=== PATIENT | female | born 1970 | race American Indian/Alaskan Native ===

== ENCOUNTER 2021-02-20 10:43 | Emergency (ER) | payer BC, MEDICAID ==
[~2021-02-20] VITALS: Ht 165.1 cm; Wt 97.7 kg
[~2021-02-20 10:43] MED LIST: DOXE100C10 PO; LURA40TA3 PO; METF-900 PO; NO HOME MEDS
[2021-02-20] MEDS ORDERED: acetaminophen 325mg tablet PO ONE (12:00)
[2021-02-20 13:19] LABS: BASOPHILS # (AUTO) 0.1 X10'3 (0-0.2); BASOPHILS % (AUTO) 0.4 % (0-1); EOSINOPHILS # (AUTO) 0.1 X10'3 (0-0.9); EOSINOPHILS % (AUTO) 0.7 % (0-6); HEMATOCRIT 37.4 % (35.0-45.0); HEMOGLOBIN 12.2 g/dl (12.0-16.0); LYMPHOCYTES # (AUTO) 3.5 X10'3 (1.1-4.8); LYMPHOCYTES % (AUTO) 21.9 % (21-51); MEAN CORPUSCULAR HEMOGLOBIN 31.5 PG (27.0-31.0); MEAN CORPUSCULAR HGB CONC 32.6 g/dL (33.0-36.5); MEAN CORPUSCULAR VOLUME 96.7 FL (78-98); MEAN PLATELET VOLUME 8.7 FL (7.4-10.4); MONOCYTES # (AUTO) 0.8 X10'3 (0-0.9); MONOCYTES % (AUTO) 5.3 % (2-12); NEUTROPHILS # (AUTO) 11.4 X10'3 (1.8-7.7); NEUTROPHILS % (AUTO) 71.7 % (42-75); PLATELET COUNT 391 X10'3 (140-440); RED BLOOD COUNT 3.87 X10'6 (4.20-5.60); RED CELL DISTRIBUTION WIDTH 13.6 % (11.5-14.5); WHITE BLOOD COUNT 15.9 X10'3 (4.5-11.0)
[2021-02-20 13:36] LABS: D-DIMER 2.27 MG/L FEU (0-0.50)
[2021-02-20 13:41] LABS: ALANINE AMINOTRANSFERASE 24 U/L (12-78); ALBUMIN 3.2 G/DL (3.4-5.0); ALBUMIN/GLOBULIN RATIO 0.8 (1.1-1.5); ALKALINE PHOSPHATASE 88 IU/L (46-116); ANION GAP 11 (8-16); ASPARTATE AMINO TRANSFERASE 12 U/L (10-37); BILIRUBIN,TOTAL 0.5 MG/DL (0.1-1.0); BLOOD UREA NITROGEN 10 MG/DL (7-18); BUN/CREATININE RATIO 14.1 (6.6-38.0); C-REACTIVE PROTEIN 4.29 MG/DL (0.0-0.5); CALCIUM 8.7 MG/DL (8.5-10.1); CHLORIDE 104 MMOL/L (99-107); CREATININE 0.71 MG/DL (0.40-0.90); GLUCOSE 118 MG/DL (70-104); POTASSIUM 4.4 MMOL/L (3.5-5.1); SODIUM 142 MMOL/L (135-145); TOTAL CARBON DIOXIDE 27.4 MMOL/L (24-32); eGFR 87 ML/MIN
[2021-02-20] MEDS ORDERED: iohexol 350MG/ML 100ml bottle IV ONE (14:57)
[2021-02-20 15:15] VITALS: BP 136/80
[2021-02-20] MEDS ORDERED: AZIT500T9 PO (16:46)
[2021-02-21] MEDS ORDERED: ROSU40TA22 PO (19:01)
[2021-02-21] MEDS ORDERED: LISI20TA28 PO (19:01)
== END 2021-02-20 17:07 | disposition home or self-care (01) ==
LOC: ER 10:44
DX: J18.9 Pneumonia, unspecified organism (principal); Z20.822 Contact with and (suspected) exposure to COVID-19; I50.9 Heart failure, unspecified; E11.9 Type 2 diabetes mellitus without complications; Z88.1 Allergy status to other antibiotic agents; Z79.2 Long term (current) use of antibiotics; Z79.899 Other long term (current) drug therapy
CPT/HCPCS: 36415; 71045; 71275; 80053; 84145; 85025; 85379; 86140; 87502; 87503; 87635; 99285; C9803; Q9967

== ENCOUNTER 2021-02-21 15:22 | Inpatient (IN) | payer BC, MEDICAID ==
[~2021-02-21] VITALS: Ht 170.2 cm; Wt 97.7 kg
[~2021-02-21 15:22] MED LIST changes: +AZIT500T9 PO
[2021-02-21] MEDS ORDERED: normal saline 1000ML IV soln IV ONE (16:05)
[2021-02-21] MEDS ORDERED: acetaminophen 325mg tablet PO ONE (16:10)
[2021-02-21 17:07] LABS: BASOPHILS # (AUTO) 0.1 X10'3 (0-0.2); BASOPHILS % (AUTO) 0.3 % (0-1); EOSINOPHILS % (AUTO) 0 % (0-6); HEMATOCRIT 38.9 % (35.0-45.0); HEMOGLOBIN 12.9 g/dl (12.0-16.0); LYMPHOCYTES % (AUTO) 3.9 % (21-51); MEAN CORPUSCULAR HEMOGLOBIN 31.5 PG (27.0-31.0); MEAN CORPUSCULAR HGB CONC 33.2 g/dL (33.0-36.5); MEAN PLATELET VOLUME 9.1 FL (7.4-10.4); MONOCYTES # (AUTO) 0.7 X10'3 (0-0.9); MONOCYTES % (AUTO) 2.7 % (2-12); NEUTROPHILS # (AUTO) 23.1 X10'3 (1.8-7.7); NEUTROPHILS % (AUTO) 93.1 % (42-75); PLATELET COUNT 393 X10'3 (140-440); RED CELL DISTRIBUTION WIDTH 13.4 % (11.5-14.5); WHITE BLOOD COUNT 24.8 X10'3 (4.5-11.0)
[2021-02-21 17:39] LABS: ALANINE AMINOTRANSFERASE 25 U/L (12-78); ALBUMIN 3.3 G/DL (3.4-5.0); ALBUMIN/GLOBULIN RATIO 0.8 (1.1-1.5); ALKALINE PHOSPHATASE 97 IU/L (46-116); ANION GAP 14 (8-16); ASPARTATE AMINO TRANSFERASE 13 U/L (10-37); BILIRUBIN,TOTAL 1.1 MG/DL (0.1-1.0); BLOOD UREA NITROGEN 10 MG/DL (7-18); BUN/CREATININE RATIO 11.4 (6.6-38.0); CALCIUM 8.9 MG/DL (8.5-10.1); CHLORIDE 98 MMOL/L (99-107); CREATININE 0.88 MG/DL (0.40-0.90); GLUCOSE 157 MG/DL (70-104); MAGNESIUM 1.7 MG/DL (1.5-2.4); POTASSIUM 3.8 MMOL/L (3.5-5.1); SODIUM 135 MMOL/L (135-145); TOTAL CARBON DIOXIDE 22.6 MMOL/L (24-32); TOTAL PROTEIN 7.5 G/DL (6.4-8.2); eGFR 68 ML/MIN
[2021-02-21 17:50] LABS: PLATELET ESTIMATE NORMAL; TOTAL CELLS COUNTED 100
[2021-02-21] MEDS ORDERED: CefTRIAXone/D5W-Rocephin 1gm 50 ML IV ONE (18:15)
[2021-02-21] MEDS ORDERED: LISI20TA28 PO (19:01)
[2021-02-21] MEDS ORDERED: ROSU40TA22 PO (19:01)
[2021-02-21] MEDS ORDERED: mag hydrox/Alum hydrox/simeth 30ml oral suspension PO PRN (20:10)
[2021-02-21] MEDS ORDERED: ondansetron/PF 4mg/2ml inj IV PRN (20:10)
[2021-02-21] MEDS ORDERED: PERFLUTREN PROTEIN-A MICROSPHR (Optison) 0.22 MG/ML 3ML VIAL IV PRN (20:10)
[2021-02-21] MEDS ORDERED: potassium Cl 20 mEq SR tablet PO PRN ×2 (20:10)
[2021-02-21] MEDS ORDERED: potassium Cl 40MEQ/1/2NS 520ml 520 ML IV PRN ×2 (20:10)
[2021-02-21] MEDS ORDERED: acetaminophen 325mg tablet PO PRN (20:10)
[2021-02-21] MEDS ORDERED: magnesium hydroxide 30ml (MOM) UD suspension PO PRN (20:10)
[2021-02-21] MEDS ORDERED: dextrose 50%-water 50ml dispensing syringe IV PRN ×2 (20:15)
[2021-02-21] MEDS ORDERED: glucagon, human recombinant 1mg kit SUBCUT PRN (20:15)
[2021-02-21] MEDS ORDERED: dextrose ORAL solution 15 GM/59 ML bottle PO PRN ×2 (20:15)
[2021-02-21] MEDS ORDERED: MESSAGE TO PHARMACY PO ONE (20:15)
[2021-02-21 20:30] LABS: HEMOGLOBIN A1C 6.7 % (4.5-6.2)
[2021-02-21] MEDS: morphine 2 MG/ML inj. syringe IV PRN (22:39)
[2021-02-21] MEDS: lurasidone 20mg tablet PO SCH (22:39)
[2021-02-21] MEDS: normal saline 1000ml 1,000 ML IV SCH (22:40)
[2021-02-21] MEDS: doxepin 25mg capsule PO SCH (22:40)
[2021-02-21] MEDS: insulin glargine (Lantus) pen - multi-dose SQ SCH (22:40)
[2021-02-22] MEDS: morphine 2 MG/ML inj. syringe IV PRN (03:00)
[2021-02-22 06:09] LABS: MEAN CORPUSCULAR HEMOGLOBIN 31.9 PG (27.0-31.0)
[2021-02-22 06:10] LABS: BASOPHILS % (AUTO) 0.1 % (0-1); EOSINOPHILS % (AUTO) 0.1 % (0-6); HEMATOCRIT 32.7 % (35.0-45.0); HEMOGLOBIN 10.8 g/dl (12.0-16.0); LYMPHOCYTES # (AUTO) 2.4 X10'3 (1.1-4.8); LYMPHOCYTES % (AUTO) 10.3 % (21-51); MEAN CORPUSCULAR VOLUME 96.5 FL (78-98); MEAN PLATELET VOLUME 9.2 FL (7.4-10.4); MONOCYTES # (AUTO) 1.1 X10'3 (0-0.9); MONOCYTES % (AUTO) 4.6 % (2-12); NEUTROPHILS # (AUTO) 20.3 X10'3 (1.8-7.7); NEUTROPHILS % (AUTO) 84.9 % (42-75); PLATELET COUNT 316 X10'3 (140-440); RED BLOOD COUNT 3.39 X10'6 (4.20-5.60); RED CELL DISTRIBUTION WIDTH 13.8 % (11.5-14.5); WHITE BLOOD COUNT 23.9 X10'3 (4.5-11.0)
[2021-02-22] MEDS: normal saline 1000ml 1,000 ML IV SCH ×2 (06:10→16:10)
[2021-02-22 06:21] LABS: ALANINE AMINOTRANSFERASE 15 U/L (12-78); ALBUMIN 2.5 G/DL (3.4-5.0); ALBUMIN/GLOBULIN RATIO 0.7 (1.1-1.5); ALKALINE PHOSPHATASE 75 IU/L (46-116); ANION GAP 9 (8-16); ASPARTATE AMINO TRANSFERASE 11 U/L (10-37); BILIRUBIN,TOTAL 0.8 MG/DL (0.1-1.0); BLOOD UREA NITROGEN 13 MG/DL (7-18); BUN/CREATININE RATIO 12.1 (6.6-38.0); CALCIUM 7.7 MG/DL (8.5-10.1); CHLORIDE 101 MMOL/L (99-107); CREATININE 1.07 MG/DL (0.40-0.90); GLUCOSE 135 MG/DL (70-104); SODIUM 135 MMOL/L (135-145); TOTAL CARBON DIOXIDE 25.5 MMOL/L (24-32); TOTAL PROTEIN 6.1 G/DL (6.4-8.2); eGFR 55 ML/MIN
--- NOTE | 2021-02-22 07:00 | NUR ---
Patient in room [facility]. I have received report from RADHA PADILLA and had the opportunity to ask questions and assume patient care.
[2021-02-22 07:38] VITALS: BP 98/56
[2021-02-22] MEDS ORDERED: CefTRIAXone/D5W-Rocephin 1gm 50 ML IV SCH (08:00)
[2021-02-22] MEDS: K and/or MAG REPLACEMENT MC SCH ×2 (08:00→20:00)
[2021-02-22] MEDS: docusate sod 100mg capsule PO SCH ×2 (09:14→21:08)
[2021-02-22] MEDS: azithromycin 250mg tablet PO SCH (09:14)
[2021-02-22] MEDS: methylPREDNISolone sod succ/PF 40mg inj. IV SCH ×2 (09:15→21:08)
[2021-02-22] MEDS: atorvastatin 20mg tablet PO SCH (09:15)
[2021-02-22] MEDS: heparin, porcine 5000 units/ml vial SQ SCH ×2 (09:16→21:08)
--- NOTE | 2021-02-22 09:48 | NUR ---
Based on pt's symptoms Dr Mathews ordered Covid PCR send out. Lab notified. [facility] tech stated pt needs a 'wet' Covid test and it will be sent out to the [facility] Dept. Tech stated the Covid AME order will be modified by the lab to reflect PCR testing, as no options for PCR testing are available in [facility]. "Wet" swab was delivered to VALERIE Vega.
[2021-02-22] MEDS: cefepime 2g/NS 100ml ADVANTAGE 100 ML IV SCH ×3 (10:55→23:16)
[2021-02-22] MEDS: HYDROcodone/acetaminophen 5mg/325mg tablet PO PRN (12:37)
--- NOTE | 2021-02-22 12:46 | NUR ---
Microbiology dept called to report Bcx on R & L arms from 02/21/21 appears to be growing "Gm negative rods", and NOT "gm positive cocci" as previously reported. VALERIE Vega notified.
--- NOTE | 2021-02-22 12:51 | NUR ---
PAGER ID: [phone] MESSAGE: LOIS SURG [id number] RE: [id number] [facility] MADE MISTAKE ON BLOOD CULTURE ACTUALLY G- RODS NOT COCCI. THANKS LOIS.
--- NOTE | 2021-02-22 17:37 | NUR ---
PAGER ID: [phone] MESSAGE: Gary surg [id number] re: [id number] theodore Romero would you be okay for me to add in MDI albuterol for patient until the PCR test is back so respiratory can treat? thank Gary.
--- NOTE | 2021-02-22 18:45 | NUR ---
Patient in room [facility]. I have received report from Gary PADILLA and had the opportunity to ask questions and assume patient care.
--- NOTE | 2021-02-22 18:57 | NUR ---
Problems reprioritized. Patient report given, questions answered & plan of care reviewed with BALAJI PADILLA.
[2021-02-22 19:00] VITALS: BP 166/72
[2021-02-22] MEDS: insulin glargine (Lantus) pen - multi-dose SQ SCH (21:00)
[2021-02-22] MEDS: lactobacillus rhamnosus 10,000 MMU CELLS/CAPSULE PO SCH (21:08)
[2021-02-22] MEDS: lurasidone 20mg tablet PO SCH (21:09)
[2021-02-22] MEDS: doxepin 25mg capsule PO SCH (21:09)
[2021-02-22] MEDS: ALBUTEROL INHALER 1 PUFF/90 MCG INHALER IH PRN (21:10)
[2021-02-23] VITALS: BP 136/73
[2021-02-23] MEDS: normal saline 1000ml 1,000 ML IV SCH ×3 (02:10→22:10)
[2021-02-23] MEDS: guaiFENesin/codeine phos 10ml UD oral syrup PO PRN ×4 (05:26→21:35)
[2021-02-23] MEDS: HYDROcodone/acetaminophen 5mg/325mg tablet PO PRN ×2 (05:27→22:43)
[2021-02-23 06:05] LABS: BASOPHILS % (AUTO) 0.1 % (0-1); EOSINOPHILS % (AUTO) 0 % (0-6); HEMATOCRIT 32.1 % (35.0-45.0); HEMOGLOBIN 10.5 g/dl (12.0-16.0); LYMPHOCYTES # (AUTO) 1.3 X10'3 (1.1-4.8); LYMPHOCYTES % (AUTO) 5.5 % (21-51); MEAN CORPUSCULAR HEMOGLOBIN 31.3 PG (27.0-31.0); MEAN CORPUSCULAR HGB CONC 32.7 g/dL (33.0-36.5); MEAN CORPUSCULAR VOLUME 95.8 FL (78-98); MEAN PLATELET VOLUME 9.1 FL (7.4-10.4); MONOCYTES # (AUTO) 1.1 X10'3 (0-0.9); MONOCYTES % (AUTO) 4.5 % (2-12); NEUTROPHILS # (AUTO) 21.3 X10'3 (1.8-7.7); NEUTROPHILS % (AUTO) 89.9 % (42-75); PLATELET COUNT 324 X10'3 (140-440); RED BLOOD COUNT 3.35 X10'6 (4.20-5.60); RED CELL DISTRIBUTION WIDTH 13.7 % (11.5-14.5); WHITE BLOOD COUNT 23.8 X10'3 (4.5-11.0)
[2021-02-23 06:22] LABS: ALANINE AMINOTRANSFERASE 25 U/L (12-78); ALBUMIN 2.4 G/DL (3.4-5.0); ALBUMIN/GLOBULIN RATIO 0.5 (1.1-1.5); ALKALINE PHOSPHATASE 105 IU/L (46-116); ANION GAP 8 (8-16); ASPARTATE AMINO TRANSFERASE 13 U/L (10-37); BILIRUBIN,TOTAL 0.3 MG/DL (0.1-1.0); BLOOD UREA NITROGEN 15 MG/DL (7-18); BUN/CREATININE RATIO 20.5 (6.6-38.0); CALCIUM 8.8 MG/DL (8.5-10.1); CHLORIDE 107 MMOL/L (99-107); CREATININE 0.73 MG/DL (0.40-0.90); GLUCOSE 209 MG/DL (70-104); POTASSIUM 4.9 MMOL/L (3.5-5.1); SODIUM 140 MMOL/L (135-145); TOTAL CARBON DIOXIDE 24.6 MMOL/L (24-32); TOTAL PROTEIN 6.9 G/DL (6.4-8.2); eGFR 85 ML/MIN
--- NOTE | 2021-02-23 06:30 | NUR ---
Problems reprioritized. Patient report given, questions answered & plan of care reviewed with Gary RN.
--- NOTE | 2021-02-23 06:30 | NUR ---
Patient in room [facility]. I have received report from Lazara PADILLA and had the opportunity to ask questions and assume patient care.
[2021-02-23 08:00] VITALS: BP 139/76
[2021-02-23] MEDS: K and/or MAG REPLACEMENT MC SCH ×2 (08:00→20:00)
[2021-02-23] MEDS: docusate sod 100mg capsule PO SCH ×2 (09:41→19:41)
[2021-02-23] MEDS: lactobacillus rhamnosus 10,000 MMU CELLS/CAPSULE PO SCH ×2 (09:41→19:40)
[2021-02-23] MEDS: methylPREDNISolone sod succ/PF 40mg inj. IV SCH ×2 (09:42→19:41)
[2021-02-23] MEDS: atorvastatin 20mg tablet PO SCH (09:42)
[2021-02-23] MEDS: azithromycin 250mg tablet PO SCH (09:42)
[2021-02-23] MEDS: heparin, porcine 5000 units/ml vial SQ SCH ×2 (09:43→19:45)
[2021-02-23] MEDS: cefepime 2g/NS 100ml ADVANTAGE 100 ML IV SCH ×2 (09:45→21:37)
[2021-02-23 12:00] VITALS: BP 154/89
[2021-02-23] MEDS: insulin Lispro (HumaLOG) vial - multi-dose SQ SCH ×2 (13:10→19:38)
[2021-02-23 13:40] LABS: COLOR,URINE YELLOW (Yellow); UA COLLECTION TYPE NON-SPECIFIED
[2021-02-23 13:41] LABS: CLARITY,URINE CLEAR (Clear); PROTEIN,URINE TRACE mg/dl (Neg)
[2021-02-23 13:42] LABS: GLUCOSE, URINE 500 mg/dl (Neg); KETONES,URINE TRACE mg/dl (Neg); NITRITES, URINE NEGATIVE (Neg); OCCULT BLOOD,URINE NEGATIVE (Neg)
[2021-02-23 13:44] LABS: LEUKOCYTE ESTERASE ,URINE NEGATIVE (Neg); UROBILINOGEN,URINE 0.2 E.U/dL (0.2-1.0)
[2021-02-23 13:50] LABS: BACTERIA,URINE NONE SEEN /HPF (Neg); MUCUS STRANDS NONE SEEN /LPF (Neg); RBC,URINE NONE SEEN /HPF (0-2); SQUAMOUS EPITHELIAL CELL,UR MODERATE /LPF (FEW); WBC,URINE NONE SEEN /HPF (0-4)
--- NOTE | 2021-02-23 16:55 | NUR ---
PAGER ID: [phone] MESSAGE: sonia surg [id number] re: [id number] theodore Romero Patient has Hemophilous Influenza is the identified bacteria lab just reported. thanks sonia.
[2021-02-23 18:00] VITALS: BP 155/94
--- NOTE | 2021-02-23 18:40 | NUR ---
Patient in room [facility]. I have received report from VALERIE Vega and had the opportunity to ask questions and assume patient care.
--- NOTE | 2021-02-23 18:48 | NUR ---
Problems reprioritized. Patient report given, questions answered & plan of care reviewed with Jonatan PADILLA.
[2021-02-23] MEDS: insulin glargine (Lantus) pen - multi-dose SQ SCH (21:34)
[2021-02-23] MEDS: lurasidone 20mg tablet PO SCH (21:36)
[2021-02-23] MEDS: doxepin 25mg capsule PO SCH (21:36)
[2021-02-24] VITALS: BP 168/100
[2021-02-24] MEDS: normal saline 1000ml 1,000 ML IV SCH ×2 (02:43→18:10)
[2021-02-24] MEDS: guaiFENesin/codeine phos 10ml UD oral syrup PO PRN ×3 (05:31→19:36)
[2021-02-24 06:06] LABS: BASOPHILS # (AUTO) 0.1 X10'3 (0-0.2); BASOPHILS % (AUTO) 0.6 % (0-1); EOSINOPHILS % (AUTO) 0.1 % (0-6); HEMATOCRIT 33.1 % (35.0-45.0); HEMOGLOBIN 10.7 g/dl (12.0-16.0); LYMPHOCYTES # (AUTO) 2.5 X10'3 (1.1-4.8); LYMPHOCYTES % (AUTO) 10.8 % (21-51); MEAN CORPUSCULAR HEMOGLOBIN 31.3 PG (27.0-31.0); MEAN CORPUSCULAR HGB CONC 32.4 g/dL (33.0-36.5); MEAN CORPUSCULAR VOLUME 96.6 FL (78-98); MEAN PLATELET VOLUME 9.6 FL (7.4-10.4); MONOCYTES # (AUTO) 1.1 X10'3 (0-0.9); MONOCYTES % (AUTO) 4.7 % (2-12); NEUTROPHILS # (AUTO) 19.2 X10'3 (1.8-7.7); NEUTROPHILS % (AUTO) 83.8 % (42-75); PLATELET COUNT 368 X10'3 (140-440); RED BLOOD COUNT 3.43 X10'6 (4.20-5.60); RED CELL DISTRIBUTION WIDTH 13.7 % (11.5-14.5); WHITE BLOOD COUNT 22.9 X10'3 (4.5-11.0)
[2021-02-24 06:19] LABS: ALANINE AMINOTRANSFERASE 38 U/L (12-78); ALBUMIN 2.6 G/DL (3.4-5.0); ALBUMIN/GLOBULIN RATIO 0.6 (1.1-1.5); ALKALINE PHOSPHATASE 122 IU/L (46-116); ANION GAP 7 (8-16); ASPARTATE AMINO TRANSFERASE 17 U/L (10-37); BILIRUBIN,TOTAL 0.2 MG/DL (0.1-1.0); BLOOD UREA NITROGEN 16 MG/DL (7-18); BUN/CREATININE RATIO 21.9 (6.6-38.0); CALCIUM 8.6 MG/DL (8.5-10.1); CHLORIDE 106 MMOL/L (99-107); CREATININE 0.73 MG/DL (0.40-0.90); GLUCOSE 173 MG/DL (70-104); POTASSIUM 4.5 MMOL/L (3.5-5.1); SODIUM 139 MMOL/L (135-145); TOTAL CARBON DIOXIDE 26.1 MMOL/L (24-32); TOTAL PROTEIN 6.8 G/DL (6.4-8.2); eGFR 85 ML/MIN
--- NOTE | 2021-02-24 06:31 | NUR ---
Problems reprioritized. Patient report given, questions answered & plan of care reviewed with VALERIE Salguero.
--- NOTE | 2021-02-24 06:48 | NUR ---
Patient in room [facility]. I have received report from VALERIE Cheung and had the opportunity to ask questions and assume patient care.
[2021-02-24 07:00] VITALS: BP 164/102
[2021-02-24] MEDS: K and/or MAG REPLACEMENT MC SCH ×2 (08:00→20:00)
[2021-02-24] MEDS: albuterol 2.5 MG/3 ML nebule NEB PRN ×2 (08:17→21:32)
[2021-02-24] MEDS: atorvastatin 20mg tablet PO SCH (08:35)
[2021-02-24] MEDS: docusate sod 100mg capsule PO SCH ×2 (08:35→20:00)
[2021-02-24] MEDS: azithromycin 250mg tablet PO SCH (08:35)
[2021-02-24] MEDS: lactobacillus rhamnosus 10,000 MMU CELLS/CAPSULE PO SCH ×2 (08:35→19:32)
[2021-02-24] MEDS: methylPREDNISolone sod succ/PF 40mg inj. IV SCH (08:36)
[2021-02-24] MEDS: HYDROcodone/acetaminophen 5mg/325mg tablet PO PRN (08:36)
[2021-02-24] MEDS: heparin, porcine 5000 units/ml vial SQ SCH ×2 (08:36→19:37)
[2021-02-24] MEDS: cefepime 2g/NS 100ml ADVANTAGE 100 ML IV SCH ×2 (08:36→19:29)
--- NOTE | 2021-02-24 09:51 | NUR ---
Initial: Pt presented with c/o SOB and cough and admit for acute respiratory failure, bilat PNA, and sepsis secondary to PNA. Currently on a CHO controlled diet and eating well with 100% PO intake throughout LOS. Notified by dietary that pt is receiving double protein TID as of 02/23. Pt meeting estimated nutrient needs. LBM 02/23. No further nutrition intervention implemented at this time. Will continue to follow. Recommendations: 1) Continue CHO controlled diet 2) Double eggs WB, double meat BIDLD for satiety 3) Routine bowel care 4) Scaled weight this admit; weekly scaled weights thereafter Addendum: 02/24/21 at [address] Amended: Links added.
[2021-02-24] MEDS: insulin Lispro (HumaLOG) vial - multi-dose SQ SCH ×2 (10:22→19:28)
[2021-02-24 11:00] VITALS: BP 169/80
[2021-02-24 18:00] VITALS: BP 173/86
--- NOTE | 2021-02-24 18:15 | NUR ---
Problems reprioritized. Patient report given, questions answered & plan of care reviewed with VALERIE Cheung.
--- NOTE | 2021-02-24 18:15 | NUR ---
Problems reprioritized. Patient report given, questions answered & plan of care reviewed with VALERIE Salguero.
[2021-02-24] MEDS: insulin glargine (Lantus) pen - multi-dose SQ SCH (21:15)
[2021-02-24] MEDS: lurasidone 20mg tablet PO SCH (21:18)
[2021-02-24] MEDS: doxepin 25mg capsule PO SCH (21:18)
[2021-02-25 00:52] VITALS: BP 160/91
[2021-02-25] MEDS: guaiFENesin/codeine phos 10ml UD oral syrup PO PRN ×2 (02:24→13:16)
[2021-02-25] MEDS: HYDROcodone/acetaminophen 5mg/325mg tablet PO PRN ×2 (04:50→21:52)
[2021-02-25] MEDS: normal saline 1000ml 1,000 ML IV SCH (04:51)
--- NOTE | 2021-02-25 06:32 | NUR ---
Problems reprioritized. Patient report given, questions answered & plan of care reviewed with VALERIE Sierra.
--- NOTE | 2021-02-25 06:44 | NUR ---
Patient in room [facility]. I have received report from VALERIE Cheung and had the opportunity to ask questions and assume patient care.
[2021-02-25 06:46] LABS: EOSINOPHILS # (AUTO) 0.1 X10'3 (0-0.9); HEMOGLOBIN 9.8 g/dl (12.0-16.0); MEAN CORPUSCULAR HEMOGLOBIN 31.8 PG (27.0-31.0); MEAN PLATELET VOLUME 9.2 FL (7.4-10.4); NEUTROPHILS % (AUTO) 66.5 % (42-75)
[2021-02-25 06:50] LABS: BASOPHILS # (AUTO) 0.2 X10'3 (0-0.2); BASOPHILS % (AUTO) 0.9 % (0-1); EOSINOPHILS % (AUTO) 0.4 % (0-6); HEMATOCRIT 29.8 % (35.0-45.0); LYMPHOCYTES # (AUTO) 4.6 X10'3 (1.1-4.8); MEAN CORPUSCULAR VOLUME 96.3 FL (78-98); MONOCYTES # (AUTO) 1.1 X10'3 (0-0.9); MONOCYTES % (AUTO) 6.2 % (2-12); NEUTROPHILS # (AUTO) 11.8 X10'3 (1.8-7.7); PLATELET COUNT 390 X10'3 (140-440); RED CELL DISTRIBUTION WIDTH 13.8 % (11.5-14.5); WHITE BLOOD COUNT 17.8 X10'3 (4.5-11.0)
[2021-02-25 07:00] VITALS: BP 155/67
[2021-02-25 07:13] LABS: ALANINE AMINOTRANSFERASE 33 U/L (12-78); ALBUMIN 2.5 G/DL (3.4-5.0); ALBUMIN/GLOBULIN RATIO 0.7 (1.1-1.5); ALKALINE PHOSPHATASE 139 IU/L (46-116); ANION GAP 10 (8-16); ASPARTATE AMINO TRANSFERASE 13 U/L (10-37); BILIRUBIN,TOTAL 0.4 MG/DL (0.1-1.0); BLOOD UREA NITROGEN 17 MG/DL (7-18); CALCIUM 8.2 MG/DL (8.5-10.1); CHLORIDE 105 MMOL/L (99-107); CREATININE 0.74 MG/DL (0.40-0.90); GLUCOSE 107 MG/DL (70-104); SODIUM 141 MMOL/L (135-145); TOTAL CARBON DIOXIDE 26.4 MMOL/L (24-32); TOTAL PROTEIN 6.3 G/DL (6.4-8.2); eGFR 83 ML/MIN
[2021-02-25] MEDS: cefepime 2g/NS 100ml ADVANTAGE 100 ML IV SCH ×2 (07:50→22:30)
[2021-02-25] MEDS: lisinopril 20mg tablet PO SCH (07:50)
[2021-02-25] MEDS: lactobacillus rhamnosus 10,000 MMU CELLS/CAPSULE PO SCH ×2 (07:50→21:30)
[2021-02-25] MEDS: docusate sod 100mg capsule PO SCH ×2 (07:50→21:29)
[2021-02-25] MEDS: azithromycin 250mg tablet PO SCH (07:50)
[2021-02-25] MEDS: atorvastatin 20mg tablet PO SCH (07:50)
[2021-02-25] MEDS: prednisone 10mg tablet PO SCH (07:50)
[2021-02-25] MEDS: heparin, porcine 5000 units/ml vial SQ SCH ×2 (07:51→21:33)
[2021-02-25] MEDS: K and/or MAG REPLACEMENT MC SCH ×2 (08:00→21:53)
[2021-02-25] MEDS: insulin Lispro (HumaLOG) vial - multi-dose SQ SCH ×3 (08:06→19:05)
[2021-02-25 15:30] VITALS: BP 164/75
--- NOTE | 2021-02-25 18:42 | NUR ---
Problems reprioritized. Patient report given, questions answered & plan of care reviewed with VALERIE Peoples.
[2021-02-25 20:00] VITALS: BP 168/86
[2021-02-25] MEDS: lurasidone 20mg tablet PO SCH (21:30)
[2021-02-25] MEDS: doxepin 25mg capsule PO SCH (21:31)
[2021-02-25] MEDS: insulin glargine (Lantus) pen - multi-dose SQ SCH (21:39)
[2021-02-25] MEDS: ALBUTEROL INHALER 1 PUFF/90 MCG INHALER IH PRN (23:24)
[2021-02-26] VITALS: BP 154/71
[2021-02-26 06:12] LABS: ALANINE AMINOTRANSFERASE 37 U/L (12-78); ALBUMIN 2.4 G/DL (3.4-5.0); ALBUMIN/GLOBULIN RATIO 0.6 (1.1-1.5); ALKALINE PHOSPHATASE 105 IU/L (46-116); ANION GAP 8 (8-16); ASPARTATE AMINO TRANSFERASE 14 U/L (10-37); BILIRUBIN,TOTAL 0.3 MG/DL (0.1-1.0); BLOOD UREA NITROGEN 18 MG/DL (7-18); BUN/CREATININE RATIO 26.1 (6.6-38.0); CALCIUM 8.7 MG/DL (8.5-10.1); CHLORIDE 104 MMOL/L (99-107); CREATININE 0.69 MG/DL (0.40-0.90); GLUCOSE 108 MG/DL (70-104); POTASSIUM 4.2 MMOL/L (3.5-5.1); SODIUM 139 MMOL/L (135-145); TOTAL PROTEIN 6.1 G/DL (6.4-8.2); eGFR 90 ML/MIN
--- NOTE | 2021-02-26 06:16 | NUR ---
Problems reprioritized. Patient report given, questions answered & plan of care reviewed with Mariela PADILLA. Addendum: 02/26/21 at 0617 by Richelle Fitzgerald RN Amended: Links added.
[2021-02-26 06:22] LABS: BASOPHILS % (AUTO) 0.3 % (0-1); EOSINOPHILS # (AUTO) 0.1 X10'3 (0-0.9); EOSINOPHILS % (AUTO) 0.8 % (0-6); HEMOGLOBIN 10.4 g/dl (12.0-16.0); LYMPHOCYTES # (AUTO) 4.2 X10'3 (1.1-4.8); LYMPHOCYTES % (AUTO) 27.8 % (21-51); MEAN CORPUSCULAR HEMOGLOBIN 32.2 PG (27.0-31.0); MEAN CORPUSCULAR HGB CONC 33.4 g/dL (33.0-36.5); MEAN CORPUSCULAR VOLUME 96.4 FL (78-98); MEAN PLATELET VOLUME 8.6 FL (7.4-10.4); MONOCYTES # (AUTO) 1.2 X10'3 (0-0.9); MONOCYTES % (AUTO) 7.9 % (2-12); NEUTROPHILS # (AUTO) 9.6 X10'3 (1.8-7.7); NEUTROPHILS % (AUTO) 63.2 % (42-75); PLATELET COUNT 389 X10'3 (140-440); RED BLOOD COUNT 3.22 X10'6 (4.20-5.60); RED CELL DISTRIBUTION WIDTH 13.9 % (11.5-14.5); WHITE BLOOD COUNT 15.3 X10'3 (4.5-11.0)
--- NOTE | 2021-02-26 06:54 | NUR ---
Patient in room [facility]. I have received report from VALERIE Peoples and had the opportunity to ask questions and assume patient care.
[2021-02-26 07:00] VITALS: BP 156/81
[2021-02-26] MEDS: cefepime 2g/NS 100ml ADVANTAGE 100 ML IV SCH (08:00)
[2021-02-26] MEDS: atorvastatin 20mg tablet PO SCH (08:01)
[2021-02-26] MEDS: lisinopril 20mg tablet PO SCH (08:08)
[2021-02-26] MEDS: docusate sod 100mg capsule PO SCH (08:10)
[2021-02-26] MEDS: lactobacillus rhamnosus 10,000 MMU CELLS/CAPSULE PO SCH (08:10)
[2021-02-26] MEDS: azithromycin 250mg tablet PO SCH (08:10)
[2021-02-26] MEDS: heparin, porcine 5000 units/ml vial SQ SCH (08:10)
[2021-02-26] MEDS: prednisone 10mg tablet PO SCH (08:10)
[2021-02-26] MEDS: insulin Lispro (HumaLOG) vial - multi-dose SQ SCH ×2 (08:21→13:49)
[2021-02-26 11:00] VITALS: BP 137/78
[2021-02-26] MEDS: HYDROcodone/acetaminophen 5mg/325mg tablet PO PRN (11:09)
[2021-02-26] MEDS ORDERED: AMOX-422 PO (12:17)
[2021-02-26] MEDS ORDERED: PRED10TA23 PO (12:17)
--- NOTE | 2021-02-26 14:00 | NUR ---
Pt discharged to home, with all belongings, in private vehicle, accompanied by daughter. Discharge instructions and medications reviewed. New prescriptions e-scripted to [facility] [address]. Pt instructed to return to ED if symptoms return, and to obtain PCP as soon as possible. Pt stated understanding and willingness to comply with all discharge instructions. IV DC'd, cannula intact. Pt escorted to front lobby via wheelchair by student RN.
== END 2021-02-26 14:03 | disposition home or self-care (01) | DRG 871 ==
LOC: ER 15:23 → ED HOLD 20:14 → SUR 3N 02-22 07:20
PROVIDERS: ADMIT Internal Medicine; ATTEND Family Medicine
PROC: 5A09357 Assistance with Respiratory Ventilation, Less than 24 Consecutive Hours, Continuous Positive Airway Pressure (ICD-10-PCS; principal; 2021-02-21)
PROC: 5A09357 Assistance with Respiratory Ventilation, Less than 24 Consecutive Hours, Continuous Positive Airway Pressure (ICD-10-PCS; 2021-02-23)
PROC: 5A09357 Assistance with Respiratory Ventilation, Less than 24 Consecutive Hours, Continuous Positive Airway Pressure (ICD-10-PCS; 2021-02-24)
PROC: 5A09357 Assistance with Respiratory Ventilation, Less than 24 Consecutive Hours, Continuous Positive Airway Pressure (ICD-10-PCS; 2021-02-25)
DX: A41.3 Sepsis due to Hemophilus influenzae (principal); J96.01 Acute respiratory failure with hypoxia; J14 Pneumonia due to Hemophilus influenzae; J44.0 Chronic obstructive pulmonary disease with (acute) lower respiratory infection; N39.0 Urinary tract infection, site not specified; E11.9 Type 2 diabetes mellitus without complications; F20.9 Schizophrenia, unspecified; G47.30 Sleep apnea, unspecified; I11.0 Hypertensive heart disease with heart failure; I50.9 Heart failure, unspecified; Z20.822 Contact with and (suspected) exposure to COVID-19; Z87.891 Personal history of nicotine dependence; Z88.8 Allergy status to other drugs, medicaments and biological substances; Z91.030 Bee allergy status; Z79.899 Other long term (current) drug therapy; T38.0X5A Adverse effect of glucocorticoids and synthetic analogues, initial encounter; Y92.230 Patient room in hospital as the place of occurrence of the external cause; D72.825 Bandemia
CPT/HCPCS: 36415; 71045; 80053; 81001; 82948; 83036; 83605; 83735; 84145; 85007; 85025; 87040; 87077; 87081; 87185; 87635; 93306; 94640; 94660; 94760; 99285; C9803; G0378; J0692; J0696; J1644; J1815; J2270; J2405; J2920; J7030; J7512

== ENCOUNTER 2022-04-04 10:33 | Emergency (ER) | payer OTHER, MEDICAID ==
[~2022-04-04] VITALS: Ht 177.8 cm; Wt 84.1 kg
[~2022-04-04 10:33] MED LIST changes: +LISI20TA28 PO; +LURA40TA2 PO; -LURA40TA3 PO; -NO HOME MEDS; +ROSU40TA22 PO
[2022-04-04 10:47] VITALS: BP 181/93
[2022-04-04] MEDS ORDERED: ketorolac trometh inj. 60 MG/2 ML VIAL IM ONE (11:25)
[2022-04-04] MEDS ORDERED: HYDROcodone/acetaminophen 5mg/325mg tablet PO ONE (11:25)
[2022-04-04] MEDS ORDERED: LIDOcaine 5% patch TP ONE (11:25)
[2022-04-04] MEDS ORDERED: orphenadrine citrate 60mg/2ml inj. IM ONE (11:25)
[2022-04-04] MEDS ORDERED: ondansetron 4mg rapidly disintigrating tab PO ONE (11:37)
[2022-04-04] MEDS ORDERED: CYCL-1 PO (12:19)
[2022-04-04] MEDS ORDERED: HYDR-3965 PO (12:19)
== END 2022-04-04 12:32 | disposition home or self-care (01) ==
LOC: ER 10:34
DX: M43.6 Torticollis (principal); I50.9 Heart failure, unspecified; J44.9 Chronic obstructive pulmonary disease, unspecified; E11.9 Type 2 diabetes mellitus without complications; F20.9 Schizophrenia, unspecified; Z88.1 Allergy status to other antibiotic agents; Z91.030 Bee allergy status; Z79.52 Long term (current) use of systemic steroids
CPT/HCPCS: 96372; 99284; J1885; J2360

== ENCOUNTER 2022-05-14 00:14 | Emergency (ER) | payer OTHER, MEDICAID ==
[~2022-05-14] VITALS: Ht 167.6 cm; Wt 85.9 kg
[~2022-05-14 00:14] MED LIST changes: +CYCL-1 PO
[2022-05-14 01:40] LABS: ALANINE AMINOTRANSFERASE 24 U/L (12-78); ALBUMIN 3.3 G/DL (3.4-5.0); ALKALINE PHOSPHATASE 82 IU/L (46-116); ANION GAP 10 (8-16); ASPARTATE AMINO TRANSFERASE 19 U/L (10-37); BILIRUBIN,TOTAL 0.4 MG/DL (0.1-1.0); BLOOD UREA NITROGEN 13 MG/DL (7-18); BUN/CREATININE RATIO 16.9 (6.6-38.0); CALCIUM 9.2 MG/DL (8.5-10.1); CHLORIDE 103 MMOL/L (99-107); CREATININE 0.77 MG/DL (0.40-0.90); GLUCOSE 144 MG/DL (70-104); POTASSIUM 3.6 MMOL/L (3.5-5.1); SODIUM 139 MMOL/L (135-145); TOTAL CARBON DIOXIDE 26.3 MMOL/L (24-32); TOTAL PROTEIN 6.7 G/DL (6.4-8.2); eGFR 79 ML/MIN
[2022-05-14] MEDS ORDERED: furosemide 10 MG/1 ML 10ml inj IV ONE (02:00)
[2022-05-14 03:38] VITALS: BP 161/98
[2022-05-14] MEDS ORDERED: FURO-150 PO (05:11)
== END 2022-05-14 05:44 | disposition left against medical advice (07) ==
LOC: ER 00:16
DX: I50.9 Heart failure, unspecified (principal); J44.9 Chronic obstructive pulmonary disease, unspecified; N17.9 Acute kidney failure, unspecified; E11.9 Type 2 diabetes mellitus without complications; F17.200 Nicotine dependence, unspecified, uncomplicated; Z88.1 Allergy status to other antibiotic agents
CPT/HCPCS: 36415; 71045; 80053; 83880; 84484; 93005; 96374; 99285; J1940

== ENCOUNTER 2024-05-04 09:47 | Emergency (ER) | payer MEDICARE, MEDICAID ==
[~2024-05-04] VITALS: Ht 165.1 cm; Wt 102.8 kg
[~2024-05-04 09:47] MED LIST changes: +FURO-150 PO; -ROSU40TA22 PO; +ROSU40TA89 PO
[2024-05-04 10:35] LABS: BASOPHILS % (AUTO) 0.3 % (0-1); EOSINOPHILS # (AUTO) 0.1 X10'3 (0-0.9); EOSINOPHILS % (AUTO) 0.4 % (0-6); HEMATOCRIT 38.1 % (35.0-45.0); HEMOGLOBIN 12.8 g/dl (12.0-16.0); LYMPHOCYTES # (AUTO) 1.5 X10'3 (1.1-4.8); MEAN CORPUSCULAR HGB CONC 33.7 g/dL (33.0-36.5); MEAN PLATELET VOLUME 9.5 FL (7.4-10.4); MONOCYTES # (AUTO) 0.6 X10'3 (0-0.9); MONOCYTES % (AUTO) 5.1 % (2-12); NEUTROPHILS # (AUTO) 10.4 X10'3 (1.8-7.7); NEUTROPHILS % (AUTO) 82.2 % (42-75); PLATELET COUNT 257 X10'3 (140-440); RED BLOOD COUNT 4.01 X10'6 (4.20-5.60); RED CELL DISTRIBUTION WIDTH 13.9 % (11.5-14.5); WHITE BLOOD COUNT 12.6 X10'3 (4.5-11.0)
[2024-05-04 10:45] LABS: ALANINE AMINOTRANSFERASE 31 U/L (12-78); ALBUMIN 3.8 G/DL (3.4-5.0); ALBUMIN/GLOBULIN RATIO 1.1 (1.1-1.5); ALKALINE PHOSPHATASE 75 IU/L (46-116); ANION GAP 10 (8-16); ASPARTATE AMINO TRANSFERASE 19 U/L (10-37); BILIRUBIN,TOTAL 0.7 MG/DL (0.1-1.0); BLOOD UREA NITROGEN 6 MG/DL (7-18); BUN/CREATININE RATIO 11.1 (10.0-20.0); CALCIUM 8.6 MG/DL (8.5-10.1); CHLORIDE 106 MMOL/L (99-107); CREATININE 0.54 MG/DL (0.40-0.90); GLUCOSE 145 MG/DL (70-104); POTASSIUM 3.4 MMOL/L (3.5-5.1); SODIUM 142 MMOL/L (135-145); TOTAL CARBON DIOXIDE 25.6 MMOL/L (24-32); TOTAL PROTEIN 7.3 G/DL (6.4-8.2); eCRCL 110 ML/MIN; eGFR > 90 ML/MIN
[2024-05-04 10:52] LABS: PRO BRAIN NATRIURETIC PEPTIDE 457 PG/ML (0-125)
[2024-05-04] MEDS: furosemide 10 MG/1 ML 10ml inj IV ONE (13:52)
[2024-05-04] MEDS: potassium Cl 20 mEq SR tablet PO STA (13:52)
[2024-05-04 13:59] VITALS: BP 201/95; PULSE 74; RESP 18; O2SAT 99
[2024-05-04 14:51] VITALS: TEMP 98.1
== END 2024-05-04 14:55 | disposition left against medical advice (07) ==
LOC: ER 09:48
DX: J44.9 Chronic obstructive pulmonary disease, unspecified (principal); I25.2 Old myocardial infarction; I50.9 Heart failure, unspecified; E11.9 Type 2 diabetes mellitus without complications; F20.9 Schizophrenia, unspecified; G47.30 Sleep apnea, unspecified; Z20.822 Contact with and (suspected) exposure to COVID-19; Z88.1 Allergy status to other antibiotic agents; Z79.899 Other long term (current) drug therapy; Z79.84 Long term (current) use of oral hypoglycemic drugs
CPT/HCPCS: 36415; 71045; 80053; 83880; 84484; 85025; 87811; 93005; 96374; 99285; A4615; J1940